=== PATIENT | male | born 1980 | race Caucasian/White ===

== ENCOUNTER 2019-05-11 15:09 | Inpatient (IN) | payer OTHER ==
[~2019-05-11] VITALS: Ht 180.3 cm; Wt 91.0 kg
[2019-05-11] MEDS ORDERED: KETOROLAC TROMETHAMINE 30 MG/ML VIAL IV ONE (16:20)
[2019-05-11] MEDS ORDERED: KETOROLAC TROMETHAMINE 30 MG/ML VIAL ONE (16:40)
[2019-05-11] MEDS ORDERED: SODIUM CHLORIDE 0.9% 50ML 50 ML ONE (16:45)
[2019-05-11] MEDS ORDERED: IOPAMIDOL 370 MG/ML 200 ML INFUS..BTL INJ ONE (16:46)
--- NOTE | 2019-05-11 17:37 | Diagnostic Imaging Report ---
EXAM: CT of the abdomen and pelvis WITH contrast HISTORY: Abdominal pain, diarrhea, fever COMPARISON: None available. TECHNIQUE: The abdomen and pelvis were scanned utilizing a multidetector helical scanner. Coronal and sagittal reformats are provided. PROTOCOL: Routine IV CONTRAST: 100 cc of Isovue-370. ORAL CONTRAST: None, which limits sensitivity and specificity of the exam. RADIATION DOSE: Total DLP: 809.75 mGy*cm Estimated effective dose: (DLP x 0.015 x size factor) Dose modulation, iterative reconstruction, and/or weight based adjustment of the mA/kV was utilized to reduce the radiation dose to as low as reasonably achievable. COMPLICATIONS: None FINDINGS: LOWER THORAX: Unremarkable. HEPATOBILIARY: A punctate hypodensity within the right lobe, statistically most likely a small cyst. No biliary dilation. No calcified gallstone. SPLEEN: No splenomegaly. PANCREAS: No focal masses or ductal dilatation. ADRENALS: No discrete adrenal nodule. KIDNEYS/URETERS: No hydronephrosis, stones, or definite solid mass lesions. PELVIC ORGANS/BLADDER: The urinary bladder is predominantly decompressed, which partially limits evaluation, but no abnormality is identified. GI TRACT: No dilation or wall thickening identified. The stomach is predominantly decompressed, which limits evaluation. The distal colon is collapsed, but the wall appears mildly edematous and mild mucosal enhancement. The appendix is not definitively visualized, but there are no inflammatory changes about the cecum to suggest acute appendicitis.. PERITONEUM / RETROPERITONEUM: No free air or fluid. LYMPH NODES: No pathologically enlarged lymph node. Nonspecific small mesenteric lymph nodes, likely reactive. VESSELS: Unremarkable. BONES: No aggressive osseous lesion or acute fracture. SOFT TISSUES: Unremarkable. IMPRESSION: Mild nonspecific distal colonic edema and inflammation along with reactive mesenteric lymph nodes, likely the sequela of an evolving infectious or other inflammatory process. Signed by: Dr. Gordon Donaldson D.O., M.M.M. on 05/11/2019 5:33 PM
[2019-05-11] MEDS ORDERED: HYDROMORPHONE 1MG/1ML INJ IV PRN (18:15)
[2019-05-11] MEDS ORDERED: CEFEPIME HCL 1 GM VIAL IV SCH (18:15)
--- OUTSIDE RECORDS SUMMARY | 2019-05-11 18:57 | XMS REPORT ---
Author Author [facility] Address Unknown Phone Unavailable Care Team Providers Care Vegetable Grader Name Role Phone Ximena WALSH Unavailable Unavailable Problems This patient has no known problems. Allergies, Adverse Reactions, Alerts This patient has no known allergies or adverse reactions. Medications This patient has no known medications. Results Test Description Test Time Test Comments Text Results Atomic Results Result Comments CT ABD/PEL WITH CONTRAST-HOPD 2019-05-11 17:24:00 [place] [address] Patient Name: MAME MERAZ MR #: [id number] : 1980 Age/Sex: 38/M Req #: [id number] Adm Physician: Ordered by: LIDA WALSH MD Report #: [id number] Location: [facility] Room/Bed: Procedure: [id number] HOPD/CT ABD/PEL WITH CONTRAST-HOPD Exam Date: 05/11/19 Exam Time: 1714 REPORT STATUS: Signed EXAM: CT of the abdomen and pelvis WITH contrast HISTORY: Abdominal pain, diarrhea, fever COMPARISON: None available. TECHNIQUE: The abdomen and pelvis were scanned utilizing a multidetector helical scanner. Coronal and sagittal reformats are provided. PROTOCOL: Routine IV CONTRAST: 100 cc of Isovue-370. ORAL CONTRAST: None, which limits sensitivity and specificity of the exam. RADIATION DOSE: Total DLP: 809.75 mGy*cm Estimated effective dose: (DLP x 0.015 x size factor) Dose modulation, iterative reconstruction, and/or weight based adjustment of the mA/kV was utilized to reduce the radiation dose to as low as reasonably achievable. COMPLICATIONS: None FINDINGS: LOWER THORAX: Unremarkable. HEPATOBILIARY: A punctate hypodensity within the right lobe, statistically most likely a small cyst. No biliary dilation. No calcified gallstone. SPLEEN: No splenomegaly. PANCREAS: No focal masses or ductal dilatation. ADRENALS: No discrete adrenal nodule. KIDNEYS/URETERS: No hydronephrosis, stones, or definite solid mass lesions. PELVIC ORGANS/BLADDER: The urinary bladder is predominantly decompressed, which partially limits evaluation, but no abnormality is identified. GI TRACT: No dilation or wall thickening identified. The stomach is predominantly decom pressed, which limits evaluation. The distal colon is collapsed, but the wall appears mildly edematous and mild mucosal enhancement. The appendix is not definitively visualized, but there are no inflammatory changes about the cecum to suggest acute appendicitis.. PERITONEUM / RETROPERITONEUM: No free air or fluid. LYMPH NODES: No pathologically enlarged lymph node. Nonspecific small mesenteric lymph nodes, likely reactive. VESSELS: Unremarkable. BONES: No aggressive osseous lesion or acute fracture. SOFT TISSUES: Unremarkable. IMPRESSION: Mild nonspecific distal colonic edema and inflammation along with reactive mesenteric lymph nodes, likely the sequela of an evolving infectious or other inflammatory process. Signed by: Dr. Seb Piña D.O., M.M.M. on 05/11/2019 5:33 PM Dictated By: SEB PIÑA DO 1733 Transcribed By: BRIAN on 05/11/19 1733 COPY TO: LIDA WALSH MD
--- NOTE | 2019-05-11 19:00 | NUR ---
[facility] CALLED FOR TRANSPORT ETA 45 MINS
[2019-05-11] MEDS: METRONIDAZOLE 500MG/NS 100ML IV SCH (19:23)
[2019-05-11] MEDS ORDERED: METRONIDAZOLE 500MG/NS 100ML 100 ML IV ONE (19:26)
[2019-05-11 19:45] VITALS: BP 116/74
--- NOTE | 2019-05-11 20:30 | NUR ---
PATIENT RECEIVED FROM ER. PATIENT IS [id number]. RESP EVEN AND UNLABORED. PATIENT STATED HE HAD BEEN LOSING 13LBS IN THE PAST WEEK, HAVING DIARRHEA AND BLOODY STOOL. PATIENT C/O ABDOMINAL PAIN. WILL MEDICATE PER JAN. IV FLUID GIVEN PER JAN. ORIENTED TO ROOM. CALL LIGHT WITHIN REACH. INSTRUCT TO CALL FOR ASSISTANCE. FRIEND AT BED SIDE. BED LOW/LOCKED. CONTINUE TO MONITOR CLOSELY
[2019-05-11] MEDS: D5.45%NS/KCL 20MEQ 1,000 ML IV SCH (20:48)
[2019-05-11] MEDS: CEFEPIME 1GM/NS 0.9% 50 ML 50 ML IV SCH (20:48)
[2019-05-11 21:00] VITALS: BP 116/74
[2019-05-11] MEDS: ONDANSETRON HCL INJ 2MG/ML 2ML 2 MG/ML VIAL IV PRN (21:15)
[2019-05-11] MEDS: HYDROMORPHONE 2MG/ML 2 MG/ML ML IV PRN (21:15)
[2019-05-11 21:20] VITALS: BP 105/72
--- NOTE | 2019-05-11 23:10 | NUR ---
SENT STOOL SAMPLE TO LAB
[2019-05-12] VITALS (8 sets, daily range): BP systolic 96–116; BP diastolic 56–75
[2019-05-12] MEDS: METRONIDAZOLE 500MG/NS 100ML IV SCH ×5 (00:41→23:23)
[2019-05-12] MEDS: HYDROMORPHONE 2MG/ML 2 MG/ML ML IV PRN (02:45)
[2019-05-12] MEDS: ONDANSETRON HCL INJ 2MG/ML 2ML 2 MG/ML VIAL IV PRN (02:50)
[2019-05-12] MEDS ORDERED: HYDRALAZINE HCL 20 MG/ML VIAL IV PRN (05:15)
[2019-05-12 05:46] LABS: BASOPHILS # (AUTO) 0.1 (0.0-0.1); BASOPHILS % 0.8 % (0.0-1.0); EOSINOPHILS # (AUTO) 0.2 (0.0-0.4); EOSINOPHILS % 3.7 % (0.0-6.0); HEMATOCRIT 38.8 % (38.2-49.6); HEMOGLOBIN 13.1 g/dL (14.0-18.0); LYMPHOCYTES # (AUTO) 1.6 (1.0-3.2); LYMPHOCYTES % 24.9 % (18.0-39.1); MEAN CORPUSCULAR HEMOGLOBIN 30.1 pg (28-32); MEAN CORPUSCULAR HGB CONC 33.8 g/dL (31-35); MEAN CORPUSCULAR VOLUME 89.2 fL (81-99); MONOCYTES # (AUTO) 0.8 (0.2-0.8); MONOCYTES % 12.3 % (4.4-11.3); NEUTROPHILS # (AUTO) 3.7 (2.1-6.9); PLATELET COUNT 206 x10e3/uL (140-360); RED BLOOD COUNT 4.35 x10e6/uL (4.3-5.7)
[2019-05-12 05:53] LABS: BLOOD UREA NITROGEN 7 mg/dL (7-26); BUN/CREATININE RATIO 8 (6-25); CALCIUM 8.6 mg/dL (8.4-10.2); CARBON DIOXIDE 26 mmol/L (22-29); CHLORIDE 103 mmol/L (98-107); CREATININE, SERUM 0.87 mg/dL (0.72-1.25); EST GLOMERULAR FILTRATION RATE > 60 ML/MIN (60-); GLUCOSE 93 mg/dL (74-118); SODIUM 135 mmol/L (136-145)
[2019-05-12] MEDS: PANTOPRAZOLE SOD 40 MG TABEC PO SCH ×2 (06:02→06:03)
[2019-05-12] MEDS: CEFEPIME 1GM/NS 0.9% 50 ML 50 ML IV SCH ×2 (06:02→17:31)
[2019-05-12] MEDS: ACETAMINOPHEN 325 MG TAB PO PRN ×3 (06:03→22:00)
[2019-05-12] MEDS ORDERED: MORPHINE SULFATE INJ 4 MG/ML INJ 1ML IV PRN (07:30)
[2019-05-12] MEDS ORDERED: NICOTINE 7 MG PATCH TOP PRN (07:45)
[2019-05-12] MEDS: HYDROCODONE/APAP 5MG-325MG TAB PO PRN ×2 (08:50→18:50)
[2019-05-12] MEDS: D5.45%NS/KCL 20MEQ 1,000 ML IV SCH ×2 (10:00→21:50)
[2019-05-12] MEDS ORDERED: ONDANSETRON HCL 4 MG ORAL DISINTEGRATING TAB PO PRN (13:45)
--- NOTE | 2019-05-12 19:05 | NUR ---
Report given to oncoming nurse of patient's status. Resting in bed. No s/s of acute distress noted. Side rails upx2, call light within reach.
[2019-05-12 21:41] LABS: OCCULT BLOOD STOOL POSITIVE (NEGATIVE)
[2019-05-13] VITALS: BP 115/57
[2019-05-13 03:55] LABS: BASOPHILS # (AUTO) 0.1 (0.0-0.1); BASOPHILS % 1.5 % (0.0-1.0); EOSINOPHILS # (AUTO) 0.2 (0.0-0.4); EOSINOPHILS % 5.2 % (0.0-6.0); HEMATOCRIT 37.3 % (38.2-49.6); HEMOGLOBIN 12.9 g/dL (14.0-18.0); LYMPHOCYTES # (AUTO) 1.4 (1.0-3.2); LYMPHOCYTES % 29.7 % (18.0-39.1); MEAN CORPUSCULAR HEMOGLOBIN 30.3 pg (28-32); MEAN CORPUSCULAR HGB CONC 34.6 g/dL (31-35); MEAN CORPUSCULAR VOLUME 87.6 fL (81-99); MONOCYTES # (AUTO) 0.5 (0.2-0.8); MONOCYTES % 10.7 % (4.4-11.3); NEUTROPHILS # (AUTO) 2.4 (2.1-6.9); NEUTROPHILS % 52.5 % (38.7-80.0); PLATELET COUNT 188 x10e3/uL (140-360); RED BLOOD COUNT 4.26 x10e6/uL (4.3-5.7); RED CELL DISTRIBUTION WIDTH 12.9 % (11.7-14.4)
[2019-05-13 04:00] VITALS: BP 96/56
[2019-05-13 04:13] LABS: BLOOD UREA NITROGEN < 5 mg/dL (7-26); CALCIUM 8.7 mg/dL (8.4-10.2); CARBON DIOXIDE 25 mmol/L (22-29); CHLORIDE 108 mmol/L (98-107); CREATININE, SERUM 0.83 mg/dL (0.72-1.25); EST GLOMERULAR FILTRATION RATE > 60 ML/MIN (60-); GLUCOSE 97 mg/dL (74-118); SODIUM 139 mmol/L (136-145)
[2019-05-13 04:16] LABS: BUN/CREATININE RATIO 6 (6-25)
[2019-05-13] MEDS: CEFEPIME 1GM/NS 0.9% 50 ML 50 ML IV SCH (05:13)
[2019-05-13] MEDS: METRONIDAZOLE 500MG/NS 100ML IV SCH ×2 (06:36→11:29)
[2019-05-13 07:30] VITALS: BP 96/56
[2019-05-13 07:40] VITALS: BP 107/57
[2019-05-13] MEDS: PANTOPRAZOLE SOD 40 MG TABEC PO SCH (08:27)
[2019-05-13] MEDS: D5.45%NS/KCL 20MEQ 1,000 ML IV SCH (11:29)
[2019-05-13 11:40] VITALS: BP 111/59
[2019-05-13 12:52] LABS: C DIFFICILE TOXIN A&B AMP PROB NEGATIVE (NEGATIVE)
[2019-05-13 15:41] VITALS: BP 123/59
[2019-05-13] MEDS ORDERED: CEFUROXIME250 MG PO (17:02)
[2019-05-13] MEDS ORDERED: FLAGYL250 MG PO (17:03)
--- NOTE | 2019-05-13 21:41 | Discharge Summary ---
ADMISSION DIAGNOSES: Diverticulitis, tobacco use. DISCHARGE DIAGNOSES: Diverticulitis, tobacco use, gastrointestinal bleed, rule out Clostridium difficile. HISTORY: The patient has no medical history. SURGICAL HISTORY: Appendectomy, left shoulder surgery, bilateral ear tubes placed. FAMILY HISTORY: The patient's aunts and uncles have cancer. SOCIAL HISTORY: The patient admits to occasional alcohol use and vaping. HOSPITAL COURSE: A 38-year-old male complains of a migraine that began on 05/04. Two days later, he began getting diarrhea and abdominal pain. His abdominal pain is constantly cramping with intermittent stabbing pain. He has had over 10 bowel movements per day. For the last few days, he noticed bright red blood per rectum. He had a fever as high as 103. On admission, the patient had a CT of the abdomen, which showed mild nonspecific distal colonic edema and inflammation along with reactive mesenteric lymph nodes, likely the sequela of involving infectious or other inflammatory process. The patient was started on cefepime and Flagyl. Stool for C diff was negative. Stool for blood was positive, but his hemoglobin remained stable. After 2 days of antibiotics, the patient is feeling much better and ready to discharge home. The patient will discharge home with home medicines plus Flagyl and Ceftin. He will follow up with primary care in 1 to 2 weeks. The patient understands discharge instructions and agrees to plan. Vital signs stable, the patient afebrile. Dictated by Aida Huizar NP MD DEMARCO No/RENZO /[id number]
== END 2019-05-13 17:54 | disposition home or self-care (01) | DRG 378 ==
LOC: FSED 15:09 → EDSEX 15:09 → ERHOLD 18:05 → MED/SURG2 20:09
PROVIDERS: ADMIT Internal Medicine; ATTEND Internal Medicine
DX: K92.2 Gastrointestinal hemorrhage, unspecified (principal); K57.92 Diverticulitis of intestine, part unspecified, without perforation or abscess without bleeding; D64.9 Anemia, unspecified; G43.909 Migraine, unspecified, not intractable, without status migrainosus; F17.200 Nicotine dependence, unspecified, uncomplicated; R59.1 Generalized enlarged lymph nodes
CPT/HCPCS: 36415; 74177; 80048; 80076; 82270; 83690; 85025; 87040; 87045; 87493; 99284; J0692; J1885; J2405; Q9967